=== PATIENT | female | born 1965 | race African-American/Black ===

== ENCOUNTER 2019-03-17 10:34 | Emergency (ER) | payer MEDICAID ==
[2019-03-17 10:42] VITALS: Wt 75.0 kg
[2019-03-17 11:58] LABS: HEMATOCRIT 35.4 % (36.0-48.0); HEMOGLOBIN 11.6 g/dL (12-16); MCH 25.2 pg (26.0-34.0); MCHC 32.8 g/dL (31.0-37.0); MEAN PLATELET VOLUME 9.3 fL (7.4-10.4); PLATELET COUNT 350 10x3/uL (130-400); RDW 19.6 % (11.5-14.5); WBC 5.3 10x3/uL (4.8-10.8)
[2019-03-17 12:15] LABS: ALBUMIN 3.4 g/dL (3.4-5.0); ANION GAP 12.9 mmol/L (8-16); BILIRUBIN - TOTAL 0.23 mg/dL (0.2-1.3); CALCIUM 8.9 mg/dL (8.5-10.1); CARBON DIOXIDE 25.9 mmol/L (21.0-32.0); CREATININE - SERUM 1.5 mg/dL (0.6-1.3); POTASSIUM - SERUM 2.8 mmol/L (3.5-5.1); PROTEIN - SERUM 8.1 g/dL (6.4-8.2)
[2019-03-17 12:38] LABS: INR 0.96 (0.85-1.17); PROTIME 12.3 SECONDS (11.6-15.0)
[2019-03-17 12:39] LABS: EOSINOPHILS 2 % (0-7); LYMPHOCYTES 58 % (15-50); MONOCYTES 2 % (2-11); NEUTROPHILS 38 % (40-80); PLATELET ESTIMATE NORMAL; PLATELET MORPHOLOGY GIANT PLTS PRESENT; ROULEAUX 3+
[2019-03-17 12:42] VITALS: BP 155/77
== END 2019-03-17 12:55 | disposition short-term general hospital (02) ==
LOC: D.ER 10:34
PROVIDERS: Family Medicine
DX: J39.0 Retropharyngeal and parapharyngeal abscess (principal); D64.9 Anemia, unspecified; E87.6 Hypokalemia